=== PATIENT | female | born 1990 | race Caucasian/White ===

== ENCOUNTER → 2018-01-09 12:36 | Outpatient (CLI) | payer OTHER, SELFPAY ==
--- NOTE | 2018-01-09 12:41 | XR_ITS ---
XR elbow LT min 3V HISTORY: Follow-up fracture ITS.REASON: LEFT radial head fracture ORDERING PHYSICIAN: Jose Manuel Horton MD PATIENT AGE: 27 years COMPARISON: 01/03/2018 FINDINGS: There is a faint radiolucency noted in the lateral aspect of the radial head which may be due to nondisplaced fracture. This may be confirmed with CT if clinically warranted. Positioning is somewhat different on today's exam with the patient's elbow been somewhat flexed. No displaced fat pad apparent. IMPRESSION: Suspect nondisplaced radial head fracture. CT may confirm
== END ==
PROVIDERS: PCP Family Medicine; Visit Provider Orthopaedic Surgery
DX: S52.123A Displaced fracture of head of unspecified radius, initial encounter for closed fracture (principal)
CPT/HCPCS: 73080

== ENCOUNTER → 2018-01-25 13:04 | Outpatient (CLI) | payer OTHER, SELFPAY ==
--- NOTE | 2018-01-25 13:08 | XR_ITS ---
XR elbow LT min 3V HISTORY: ITS.REASON: soft tissue injury LEFT elbow/ doi 01/03/18 ORDERING PHYSICIAN: Jose Manuel Horton MD PATIENT AGE: 27 years COMPARISON: 01/09/2018 FINDINGS: The study is submitted to me for interpretation on 03/08/2018 No fracture or dislocation. No lytic or blastic change. No displaced fat pad. Previously noted lucency at the radial head is not redemonstrated on this exam. If pain persists, then would consider CT or MRI for further evaluation. IMPRESSION: Negative left elbow
== END ==
PROVIDERS: PCP Family Medicine; Visit Provider Orthopaedic Surgery
DX: S59.902A Unspecified injury of left elbow, initial encounter (principal)
CPT/HCPCS: 73080

== ENCOUNTER 2021-11-14 14:47 | Emergency (ER) | payer OTHER, SELFPAY ==
--- NOTE | 2021-11-14 15:14 | HMH.EDUTC ---
[facility] [place] Clinical Impression: Superficial abrasion Puncture wound of left thigh Qualifiers: Encounter type: initial encounter Qualified Code(s): S71.132A - Puncture wound without foreign body, left thigh, initial encounter Disposition: Home, Self-Care Condition on Discharge: Good Instructions: DI for Abrasion, DI for Puncture Wound Additional Instructions: Apply warm wet compresses to the puncture wound site or four times per day for 15 minutes as tolerated. Take the antibiotics as directed and apply the topical antibiotics as directed. Follow up with your regular doctor. Don't shave your underarms until this is well healed. Wait at least 1 to 2 months. GO TO THE ER FOR ANY WORSENING SYMPTOMS OR CONCERNS Prescriptions: Mupirocin [Bactroban 2% Ointment 22gm tube] 1 applicatio TP TID 7 Days #1 gm Transmission Status: Received by [facility] #[id number] cephALEXin [cephALEXin 500mg capsule] 500 mg PO Q6H 10 Days #40 cap Transmission Status: Received by [facility] #[id number] Referrals: Ewa Mackenzie MD [Primary Care Provider] - Time of Disposition: 15:38 Medical Decision Making - Medical Records Medical records reviewed: No: I reviewed the patient's medical records. - Mango Inquiry Pt receiving controlled substance: No Vital Signs: 11/14/21 15:18 11/14/21 15:38 Temperature 98.6 F 98.6 F Temperature Source Oral Pulse Rate 71 Pulse Rate [Right Brachial] 71 Respiratory Rate 20 20 Blood Pressure 116/74 Blood Pressure [Right Arm] 116/74 Blood Pressure Mean [Right Arm] 88 Blood Pressure Source [Right Arm] Automatic Cuff Blood Pressure Position [Right Arm] Sitting 02 Sat by Pulse Oximetry 100 - Lab Data Lab results reviewed: Yes: I reviewed the patient's lab results. Orders (Tests/Meds): ED MEDICATIONS Discontinued Medications Generic Name Dose Route Start Last Admin Trade Name Freq PRN Reason Stop Dose Admin Ceftriaxone Sodium 1 gm 11/14/21 15:08 11/14/21 15:25 Ceftriaxone 1gm Vial IM 11/14/21 15:09 1 gm ONCE ONE Administration Lidocaine HCl 0 ml 11/14/21 15:08 11/14/21 15:25 Lidocaine 1% 5ml Pf Vial IM 11/14/21 15:09 2 ml ONCE ONE Administration Tetanus/Reduced Diphtheria/Acell Pertussis 0.5 ml 11/14/21 15:08 11/14/21 15:25 Tet/Diphth/Pert-Adult 0.5ml Syringe IM 11/14/21 15:09 0.5 ml .ONCE ONE Administration [facility] - General Stated complaint: left leg laceration Time Seen by Provider: 11/14/21 15:14 - History of Present Illness Provider Complaint: She has multiple scratches and 1 deeper puncture wound from climbing across a maddie wire fence 2 days ago. Her tetanus immunization is not up to date. - Related Data Previous Rx's Medication Instructions Recorded Mupirocin [Bactroban 2% Ointment 1 applicatio TP TID 7 Days #1 gm 11/14/21 22gm tube] cephALEXin [cephALEXin 500mg 500 mg PO Q6H 10 Days #40 cap 11/14/21 capsule] Allergies Allergy/AdvReac Type Severity Reaction Status Date / Time No Known Allergies Allergy Verified 01/15/20 09:06 [facility] History - Hepatitis A Screen Attestation statement:: This patient has been screened for Hepatitis A risk factors. I have reviewed the patient's past medical history: Yes Other Surgeries: Yes: Cholecystectomy Amputation: No Fractures: No - Social History Smoking Status: Former smoker Tobacco Type: cigarettes Alcohol Intake: never Substance Use Type: denies use Occupational Status: unemployed Family Hx:: No significant family history ROS Obtained: Yes All systems reviewed & no additional complaints - Constitutional Constitutional: Denies chills, Denies fever(s) - Musculoskeletal Musculoskeletal: Denies joint pain - Integumentary/Breasts Skin/Breast: Reports as per HPI Physical Exam - General General appearance: alert, in no apparent distress - Head Head exam: atraumatic, normocephalic, normal inspection - E
[2021-11-14 15:18] VITALS: BP 116/74; PULSE 71; RESP 20; TEMP 37; O2SAT 100; BMI 23.5
[2021-11-14 15:38] VITALS: BP 116/74; PULSE 71; RESP 20; TEMP 37; O2SAT 100
== END 2021-11-14 15:55 | disposition home or self-care (01) ==
PROVIDERS: Emergency Provider Nurse Practitioner Family; PCP Family Medicine
DX: S71.132A Puncture wound without foreign body, left thigh, initial encounter (principal); W22.8XXA Striking against or struck by other objects, initial encounter; Z23 Encounter for immunization; Z87.891 Personal history of nicotine dependence
CPT/HCPCS: 90471; 90715; 96372; 99213; G0463; J0696

== ENCOUNTER → 2022-12-06 14:36 | Outpatient (CLI) | payer OTHER, SELFPAY ==
--- NOTE | 2022-12-06 14:36 | US_ITS ---
PROCEDURE INFORMATION: Exam: US Left Breast, Complete Exam date and time: 12/06/2022 2:45 PM Age: 32 years old Clinical indication: Breast pain; Left TECHNIQUE: Imaging protocol: Complete ultrasound of all four quadrants of the left breast and the retroareolar regions, including ultrasound of the axilla when performed. COMPARISON: No relevant prior studies available. FINDINGS: Breast: Sonographic images of the left breast including the retroareolar region, all 4 quadrants and the axilla demonstrates a questionable debris-filled cyst versus solid mass in the 11 o'clock axis 2 cm from the nipple measuring 0.4 by 0.4 x 0.2 cm. Minimal subcentimeter cystic change is otherwise noted in the left retroareolar region. No architectural distortion or acoustical shadowing. No skin thickening or axillary adenopathy. IMPRESSION: Questionable solid mass versus debris-filled cyst in the left upper inner quadrant. A diagnostic left mammogram is recommended for correlative purposes ASSESSMENT: BI-RADS Category 0: Incomplete- Need Additional Imaging Evaluation and/or Prior Mammograms for Comparison
== END ==
PROVIDERS: PCP Nurse Practitioner Family; Visit Provider Obstetrics & Gynecology
DX: N64.4 Mastodynia (principal)
CPT/HCPCS: 76641

== ENCOUNTER → 2022-12-27 12:48 | Outpatient (CLI) | payer OTHER, SELFPAY ==
--- NOTE | 2022-12-27 12:49 | MM_ITS ---
PROCEDURE INFORMATION: Exam: MG Left Diagnostic Breast Tomosynthesis Exam date and time: 12/27/2022 12:55 PM Age: 32 years old Clinical indication: Recall following left sonography 12/06/2022 questioning mammographic correlate to questionable debris-filled cyst versus solid mass at 11 o'clock 2 cm from the nipple measuring 0.4 cm. TECHNIQUE: Imaging protocol: Left Diagnostic tomosynthesis and 2D mammography including computer-aided detection (CAD) when performed. Unilateral or bilateral exam. COMPARISON: US BREAST LT COMPLETE 12/06/2022 2:45 PM FINDINGS: MAMMOGRAPHY: Breast composition: There are scattered areas of fibroglandular density. Mass: Questionable 0.3 cm oval mass/circumscribed asymmetry in the inner CC, anterior 3rd. No suspicious mass. Architectural distortion: None. Calcifications: No suspicious calcifications. Asymmetric density: None. Skin thickening: None. Axillary adenopathy: None. Other: Questionable vascular calcifications in the upper outer quadrant, less likely related to parasites, which could be correlated clinically. IMPRESSION: See comments Probably benign, possible 0.3 cm oval nodule in the inner aspect which may correspond to the sonographic mass at 11:00. Suggest 6 month follow up left diagnostic mammogram and left sonography, unless otherwise clinically indicated. Note probable vascular calcifications in this patient age age 32, clinical correlation recommended to assess if further cardiac/vascular imaging or consultation indicated. (less likely, with differential in could include related to parasites, which could be correlated clinically). ASSESSMENT: BI-RADS Category 3: Probably benign
== END ==
PROVIDERS: PCP Obstetrics & Gynecology; Visit Provider Obstetrics & Gynecology
DX: R92.8 Other abnormal and inconclusive findings on diagnostic imaging of breast (principal); N64.4 Mastodynia
CPT/HCPCS: 77061; 77065; G0279